=== PATIENT | male | born 1990 | race African-American/Black ===

== ENCOUNTER 2018-10-03 02:37 | Emergency (ER) | payer SELFPAY ==
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
[2018-10-03] MEDS ORDERED: LIDOCAINE 1%/EPINEPHRINE INJ 20 ML VIAL INJ ONE (06:12)
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
[2018-10-03 07:24] VITALS: BP 169/91
== END 2018-10-03 07:24 | disposition home or self-care (01) ==
LOC: ER 02:37
PROC: 0HQ1XZZ Repair Face Skin, External Approach (ICD-10-PCS; principal; 2018-10-03)
DX: S01.81XA Laceration without foreign body of other part of head, initial encounter (principal); Y08.89XA Assault by other specified means, initial encounter; F17.200 Nicotine dependence, unspecified, uncomplicated; J45.909 Unspecified asthma, uncomplicated
CPT/HCPCS: 99283; 70450; 12013; J3490

== ENCOUNTER 2018-12-01 04:29 | Inpatient (IN) | payer OTHER ==
[2018-12-01] MEDS ORDERED: NORMAL SALINE 1000 ML 1,000 ML IV ONE (04:44)
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
[2018-12-01 05:13] LABS: VENOUS BLOOD BASE EXCESS 1.9 mmol/L; VENOUS BLOOD HCO3 27.1 mmol/L (20-32); VENOUS BLOOD PCO2 44.2 mmHg (35-63); VENOUS BLOOD PH 7.41 (7.30-7.42)
[2018-12-01 05:17] LABS: HEMATOCRIT 40.1 % (37.9-51.0); HEMOGLOBIN 13.5 g/dL (13.5-17.0); MEAN CORPUSCULAR HEMOGLOBIN 29.7 pg (27.0-33.4); MEAN CORPUSCULAR HGB CONC 33.7 g/dL (32.0-36.0); MEAN CORPUSCULAR VOLUME 88 fl (80-97); PLATELET COUNT 183 10^3/uL (150-450); RED BLOOD COUNT 4.54 10^6/uL (4.35-5.55)
[2018-12-01 05:32] LABS: ALANINE AMINOTRANSFERASE 16 U/L (21-72); ALBUMIN 4.3 g/dL (3.5-5.0); ALKALINE PHOSPHATASE 57 U/L (38-126); ANION GAP 11 (5-19); ASPARTATE AMINO TRANSFERASE 15 U/L (17-59); BILIRUBIN,DIRECT 0.2 mg/dL (0.0-0.4); BILIRUBIN,TOTAL 0.6 mg/dL (0.2-1.3); BLOOD UREA NITROGEN 9 mg/dL (7-20); CALCIUM 9.9 mg/dL (8.4-10.2); CARBON DIOXIDE 26 mmol/L (22-30); CHLORIDE 103 mmol/L (98-107); GLUCOSE 112 mg/dL (75-110); SODIUM 140.1 mmol/L (137-145); TOTAL PROTEIN 6.7 g/dL (6.3-8.2)
[2018-12-01 05:38] LABS: ABSOLUTE LYMPHOCYTES# (MANUAL) 0.2 10^3/uL (0.5-4.7); ABSOLUTE MONOCYTES # (MANUAL) 0.2 10^3/uL (0.1-1.4); ABSOLUTE NEUTROPHILS# (MANUAL) 18.6 10^3/uL (1.7-8.2); BAND NEUTROPHILS % (MANUAL) 4 % (3-5); BASOPHILS % (MANUAL) 0 % (0-2); EOSINOPHILS % (MANUAL) 0 % (0-6); LYMPHOCYTES % (MANUAL) 1 % (13-45); MONOCYTES % (MANUAL) 1 % (3-13); PLATELET COMMENT ADEQUATE; SEGMENTED NEUTROPHILS % (MAN) 94 % (42-78); TOTAL CELLS COUNTED 100
[2018-12-01 05:39] LABS: RBC MORPHOLOGY COMMENT NORMO-CYTIC/CHROMIC
--- NOTE | 2018-12-01 05:49 | RADIOLOGY REPORT (SQ) ---
EXAM DESCRIPTION: XR CHEST 2 VIEWS COMPLETED DATE/TME: 12/01/2018 04:44 CLINICAL HISTORY: 28 years Male, fever, chest pain COMPARISON: None. NUMBER OF VIEWS/TECHNIQUE: 2, Frontal, Lateral FINDINGS: Adequate lung volume, clear parenchyma, normal cardiac silhouette, and intact bony thorax. IMPRESSION: No acute cardiopulmonary findings.
[2018-12-01] MEDS ORDERED: KETOROLAC TROMETHAMINE INJ/PF 30 MG/1 ML SDV IV ONE ×2 (05:59→06:01)
[2018-12-01 06:09] LABS: APPEARANCE,URINE CLEAR; BILIRUBIN,URINE NEGATIVE (NEGATIVE); COLOR,URINE YELLOW; GLUCOSE, URINE NEGATIVE (NEGATIVE); KETONES,URINE NEGATIVE (NEGATIVE); LEUKOCYTE ESTERASE,URINE NEGATIVE (NEGATIVE); NITRITE,URINE NEGATIVE (NEGATIVE); PROTEIN,URINE NEGATIVE (NEGATIVE); URINE SPECIFIC GRAVITY 1.015; UROBILINOGEN,URINE NEGATIVE mg/dL (<2.0)
[2018-12-01 06:57] LABS: URINE AMPHETAMINES SCREEN NEGATIVE; URINE BARBITURATES SCREEN NEGATIVE; URINE BENZODIAZEPINES SCREEN NEGATIVE; URINE COCAINE SCREEN NEGATIVE; URINE MARIJUANA (THC) SCREEN NEGATIVE; URINE METHADONE SCREEN NEGATIVE; URINE PHENCYCLIDINE SCREEN NEGATIVE
--- NOTE | 2018-12-01 07:03 | RADIOLOGY REPORT (SQ) ---
EXAM DESCRIPTION: CT CHEST ANGIOGRAPHY WITHOUT THEN WITH IV CONTRAST COMPLETED DATE/TME: 12/01/2018 06:18 CLINICAL HISTORY: 28 years Male, CP, Tachy, Cough, Hx DVT Comparison: None. Technique: IV contrast. Coronal and sagittal reformat. 3d reconstruction. This exam was performed according to our departmental dose-optimization program, which includes automated exposure control, adjustment of the mA and/or kV according to patient size and/or use of iterative reconstruction technique.[facility]: Dose Right [facility]: CareDose [facility]: Dose Right [facility]: Teradose 4D [facility]: [employer] LIMITATIONS: None Findings: No pulmonary embolus. No right ventricular strain. Clear lungs. Inferior neck, axillae, mediastinum, lungs, airway, lymphatics, heart, vasculature, upper abdomen, and musculoskeleton appear otherwise unremarkable. Impression: No pulmonary embolus. No acute cardiopulmonary findings.
--- NOTE | 2018-12-01 08:40 | EKG REPORT ---
SEVERITY:- NORMAL ECG - SINUS RHYTHM : Confirmed by: Jose R Ch MD 01-Dec-2018 08:39:52
[2018-12-01] MEDS ORDERED: ACETAMINOPHEN 325 MG TABLET PO ONE (11:53)
--- NOTE | 2018-12-01 14:32 | XCELERA REPORT ---
[address] [address] Lower Extremity Venous Evaluation Procedure: Color flow and duplex imaging of the veins of the left lower extremity as well as the right Common Femoral vein. Right Sided Venous Evaluation The right common femoral vein is fully compressible. Spontaneous and phasic flow is present in the right common femoral vein. Left Sided Venous Evaluation Oval mass, complex in subcutaneous tissue of groin, 3.8 x 1.5 x 3.7 cms. Normal vessel filling wall to wall, compression and augmentation as well as Colour flow down to the infrageniculate veins. Interpretation Summary No duplex evidence of DVT or obstruction in the left lower extremity nor in the right Common Femoral vein. Left groin mass, likely an enlarged lymph node. Name: MONIQUE GAYTAN JR Age: 28 yrs Gender: Male : 1990 Patient Status: Emergency Patient Location: ER Study Date: 12/01/2018 08:11 AM Reason For Study: left leg pain Ordering Physician: HEDY FORMAN Performed By: Deep Maher : HEDY FORMAN > Martin Roldan
--- NOTE | 2018-12-01 16:26 | RADIOLOGY REPORT (SQ) ---
EXAM DESCRIPTION: MRI LUMBAR SPINE WITHOUT COMPLETED DATE/TIME: 12/01/2018 4:13 pm REASON FOR STUDY: r/o spinal abscess, lumbar tenderness, FUO COMPARISON: None. TECHNIQUE: Sagittal and Axial imaging includes T1, T2, STIR and gradient echo sequences. Coronal T2/ HASTE imaging. LIMITATIONS: None. FINDINGS: VISUALIZED UPPER ABDOMEN: Limited evaluation. No acute or suspicious findings suggested. SEGMENTATION: No transitional anatomy. The lowest well-developed disc space is labeled L5-S1. ALIGNMENT: 9 mm anterolisthesis of L5 on S1. VERTEBRAE: Intact. BONE MARROW: Normal. No marrow replacement or reactive changes. DISC SIGNAL: Disc desiccation at the L5-S1 level with uncovering of the posterior disc margin, 8 mm w ith mild global height loss. Otherwise the signal is within normal limits in the remaining lumbar le vels. POSTERIOR ELEMENTS: Bilateral L5 pars defects. HARDWARE: None in the spine. CORD AND CONUS: Normal in size and signal intensity. Conus at the appropriate level. SOFT TISSUES: No aortic aneurysm seen. No bulky retroperitoneal adenopathy or mass. No paraspinal mas s or fluid. L1-L2: No significant spinal stenosis or exit foraminal stenosis. L2-L3: No significant spinal stenosis or exit foraminal stenosis. L3-L4: No significant spinal stenosis or exit foraminal stenosis. L4-L5: No significant spinal stenosis or exit foraminal stenosis. L5-S1: No significant spinal stenosis. Mild -moderate bilateral L5-S1 exit foraminal stenosis. LOWER THORACIC: Incompletely imaged. No stenosis seen. SACRUM: Visualized upper sacrum intact. OTHER: No other significant findings. IMPRESSION: Mild -moderate bilateral L5-S1 exit foraminal stenosis due to 9 mm anterolisthesis secon maximiliano to bilateral L5 pars interarticularis defects. TECHNICAL DOCUMENTATION: JOB ID: [id number] 2010 [employer]- All Rights Reserved Reading location - IP/workstation name: [email or web address]
--- NOTE | 2018-12-01 16:35 | PDOC H&P ---
History of Present Illness Patient complains of: left thigh pain, fever History of Present Illness: MONIQUE GAYTAN JR is a 28 year old male with a past medical history of DVT on the left lower extremity in 2009 and was previously on Coumadin, HTN-not on meds and asthma. He also reports some sort of infection on the same area and he says he had an infected clot on that leg was brought into shelter because of left thigh vincenzo n. Patient says that he does have chronic pain on the medial aspect of the left groin after he had a surgical removal of "that previously infected clot". In the ER, he was noted to be febrile with a T-max of 103 F. Initial work-up is unrevealing for definite source of infection. Left lower extremity ultrasound is negative for DVT or abscess. Left groin mass is deemed to be a likely enlarged lymph node. Chest CTA was also done as patient initially complaining of mild chest pain this came back negative for PE or pneumonia. UA was also negative. On auscultation, patient does have a systolic murmur but he says that he was told that he had a murmur since he was a baby. He denies IV drug use. He complains of mild lower back pain but this has been chronic. There is no significant focal tenderness along the spine. Past Medical History Cardiac Medical History: Reports: DVT, Hypertension Pulmonary Medical History: Reports: Asthma Past Surgical History Past Surgical History: Reports: Orthopedic Surgery - leg for clot Social History Lives with: Other - Incarcerated Smoking Status: Current Every Day Smoker Family History Family History: Reviewed & Not Pertinent Parental Family History Reviewed: Yes - No premature CAD Children Family History Reviewed: No Sibling(s) Family History Reviewed.: No Medication/Allergy Home Medications: No Home Medications 12/01/18 Allergies/Adverse Reactions: amoxicillin [From Augmentin] Allergy (Verified 12/01/18 06:17) clavulanic acid [From Augmentin] Allergy (Verified 12/01/18 06:17) Penicillins Allergy (Verified 12/01/18 06:17) tramadol Allergy (Verified 12/01/18 06:17) Review of Systems All systems: reviewed and no additional remarkable complaints except as stated - As mentioned in HPI Physical Exam Vital Signs: Temp Pulse Resp BP Pulse Ox 100.7 F H 116 H 24 H 168/107 H 100 12/01/18 11:31 12/01/18 04:30 12/01/18 11:31 12/01/18 11:31 12/01/18 11:31 Intake & Output 11/30/18 12/01/18 12/02/18 06:59 06:59 06:59 Intake Total 1000 Balance 1000 Weight 195 lb 1.745 oz Results Laboratory Results: 12/01/18 04:46 12/01/18 04:46 12/01/18 12/01/18 12/01/18 04:46 04:46 04:46 WBC 19.0 H RBC 4.54 Hgb 13.5 Hct 40.1 MCV 88 MCH 29.7 MCHC 33.7 RDW 13.0 Plt Count 183 Seg Neutrophils % Not Reportable Lymphocytes % Not Reportable Monocytes % Not Reportable Eosinophils % Not Reportable Basophils % Not Reportable Absolute Neutrophils Not Reportable Absolute Lymphocytes Not Reportable Absolute Monocytes Not Reportable Absolute Eosinophils Not Reportable Absolute Basophils Not Reportable VBG pH VBG pCO2 VBG HCO3 VBG Base Excess Sodium 140.1 Potassium 4.0 Chloride 103 Carbon Dioxide 26 Anion Gap 11 BUN 9 Creatinine 1.08 Est GFR ( Amer) > 60 Est GFR (Non-Af Amer) > 60 Glucose 112 H Lactic Acid 1.7 Calcium 9.9 Total Bilirubin 0.6 AST 15 L ALT 16 L Alkaline Phosphatase 57 C-Reactive Protein Total Protein 6.7 Albumin 4.3 Urine Color Urine Appearance Urine pH Ur Specific [place] Urine Protein Urine Glucose (UA) Urine Ketones Urine Blood Urine Nitrite Ur Leukocyte Esterase Urine WBC (Auto) Urine RBC (Auto) 12/01/18 12/01/18 12/01/18 04:46 04:46 05:50 WBC RBC Hgb Hct MCV MCH MCHC RDW Plt Count Seg Neutrophils % Lymphocytes % Monocytes % Eosinophils % Basophils % Absolute Neutrophils Absolute Lymphocytes Absolute Monocytes Absolute Eosinophils Absolute Basophils VBG pH 7.41 VBG pCO2 44.2 VBG HCO3 27.1 VBG Base Excess 1.9 Sodium Potassium Chloride Carbon Dioxide Anion Gap BUN Creatinine Est GFR ( Amer) Est GFR (Non-Af Amer) Glucose Lactic Acid Calcium Total Bilirubin AST ALT Alkaline Phosphatase C-Reactive Protein 5.9 Total Protein Albumin Urine Color YELLOW Urine Appearance CLEAR Urine pH 7.0 Ur Specific [place] 1.015 Urine Protein NEGATIVE Urine Glucose (UA) NEGATIVE Urine Ketones NEGATIVE Urine Blood NEGATIVE Urine Nitrite NEGATIVE Ur Leukocyte Esterase NEGATIVE Urine WBC (Auto) 1 Urine RBC (Auto) 0 12/01/18 04:46 Troponin I < 0.012 Impressions: Chest X-Ray 12/01/18 04:44 IMPRESSION: No acute cardiopulmonary findings. Assessment and Plan - Diagnosis (1) Fever of undetermined origin Is this a current diagnosis for this admission?: Yes Plan: Patient has been persistently febrile in the ER with a T-max of 103. As m entioned, patient does have a systolic murmur but he says that he was told that he had a murmur since he was a baby. Blood cultures pending. Will start patient on IV vancomycin. Will order an echocardiogram. He complains of mild lower back pain but this has been chronic. There is no significant focal tenderness along the spine. We will rule out a spinal abscess with an MRI. (2) Hypertension Is this a current diagnosis for this admission?: Yes Plan: Currently not on any home medications. Continue to check blood pressure trends. Add hydralazine as needed. Will start oral maintenance medication depending on blood pressure trends. - Time Time Spent with patient: 25-34 minutes
[2018-12-01] MEDS ORDERED: VANCOMYCIN HCL 0 MG in DEXTROSE 5%-WATER 250 ML IV NR (16:45)
[2018-12-01] MEDS ORDERED: ACETAMINOPHEN 325 MG TABLET PO PRN (17:07)
[2018-12-01] MEDS: ACETAMINOPHEN 325 MG TABLET PO PRN ×2 (17:14→23:19)
[2018-12-01] MEDS ORDERED: VANCOMYCIN HCL INJ 1000 MG VIAL IV PRN (17:47)
[2018-12-01] MEDS ORDERED: VANCOMYCIN HCL 1,750 MG in DEXTROSE 5%-WATER 500 ML IV ONE (18:00)
[2018-12-01] MEDS ORDERED: HYDRALAZINE HCL INJ/PF 20 MG/1 ML SDV IV PRN (18:49)
--- NOTE | 2018-12-01 20:20 | XCELERA REPORT ---
[address] [address] Transthoracic Echocardiogram Report Name: MONIQUE GAYTAN JR Age: 28 yrs Gender: Male : 1990 Patient Status: Inpatient Patient Location: [place] [address]^A Study Date: 12/01/2018 04:48 PM Height: 65 in Weight: 195 lb BSA: 2.0 m2 Procedure: A two-dimensional transthoracic echocardiogram with color flow and Doppler was performed. Images were not obtained from all of the standard acoustic windows due to the limited scope of the study. Reason For Study: FUO,systolic murmur (reports known murmur) History: SYSTOLIC MURMUR. Ordering Physician: JANIE CANTOR Performed By: Deep Maher Interpretation Summary The left ventricle is normal in size. There is normal left ventricular wall thickness. No True apical 2 chamber views obtained.Hence cannot comment on the apical anterior , the basal anterior, the basal inferior and apical inferior akhtar.The mid anterior , the mid inferior and the rest of the LV akhtar contract normally. . LVEF is normal and is greater than 60% in the limited views. Doppler measurements suggest normal left ventricular diastolic function There is no thrombus. No defenite ASD , VSD . or PFO seen. The right ventricle is normal in size and function. The right ventricle is not well visualized secondary to technical limitations The right atrium is normal. The left atrial size is normal. There is no evidence of mitral valve prolapse. There is no vegetation seen on the mitral valve. There is no mitral valve stenosis. There is a trace amount of mitral regurgitation There is no aortic valvular vegetation. There is mild aortic stenosis There is a peak gradient of 16 mm of Hg. No hemodynamically significant valvular aortic stenosis. There is no LVOT obstruction. No aortic regurgitation is present. There is no tricuspid stenosis. There is a trace to mild amount of tricuspid regurgitation Mild Pulmonary Hypertension.RVSP is 31 to 36 mm of Hg , with RA mean of 5 to 10. There is no pulmonic valvular stenosis. There is no pulmonic valvular regurgitation. The aortic root is not well visualized but is probably normal size. The inferior vena cava appeared normal and decreased > 50% with respiration (RAP 5-10 mmHg) There is no pericardial effusion. MMode/2D Measurements & Calculations RVDd: 3.0 cm LVIDd: 4.0 cm FS: 29.0 % Ao root diam: 2.9 cm IVSd: 0.88 cm LVIDs: 2.8 cm EDV(Teich): 69.5 ml Ao root area: 6.8 cm2 LVPWd: 1.2 cm ESV(Teich): 30.4 ml LA dimension: 2.5 cm EF(Teich): 56.3 % LVOT diam: 1.9 cm LVOT area: 3.0 cm2 Doppler Measurements & Calculations MV E max cuca: MV P1/2t max cuca: Ao V2 max: LV V1 max P.4 cm/sec 112.9 cm/sec 197.2 cm/sec 11.7 mmHg MV A max cuca: MV P1/2t: 66.0 msec Ao max PG: LV V1 max: 78.0 cm/sec MVA(P1/2t): 3.3 cm2 15.6 mmHg 170.7 cm/sec MV E/A: 1.1 MV dec slope: DAY(V,D): 2.6 cm2 501.1 cm/sec2 MV dec time: 0.23 sec PA V2 max: TR max cuca: MV P1/2t-pr_phl: 190.0 cm/sec 257.1 cm/sec 66.0 msec PA max PG: TR max P.4 mmHg 14.4 mmHg Left Ventricle The left ventricle is normal in size. There is normal left ventricular wall thickness. No True apical 2 chamber views obtained.Hence cannot comment on the apical anterior , the basal anterior, the basal inferior and apical inferior akhtar.The mid anterior , the mid inferior and the rest of the LV akhtar contract normally. . LVEF is normal and is greater than 60% in the limited views. Doppler measurements suggest normal left ventricular diastolic function. There is no thrombus. No defenite ASD , VSD . or PFO seen. Right Ventricle The right ventricle is normal in size and function. The right ventricle is not well visualized secondary to technical limitations. Atria The right atrium is normal. The left atrial size is normal. Mitral Valve There is no evidence of mitral valve prolapse. There is no vegetation seen on the mitral valve. There is no mitral valve stenosis. There is a trace amount of mitral regurgitation. Aortic Valve There is no aortic valvular vegetation. There is mild aortic stenosis. There is a peak gradient of 16 mm of Hg. No hemodynamically significant valvular aortic stenosis. There is no LVOT obstruction. No aortic regurgitation is present. Tricuspid Valve There is no tricuspid stenosis. There is a trace to mild amount of tricuspid regurgitation. Mild Pulmonary Hypertension.RVSP is 31 to 36 mm of Hg , with RA mean of 5 to 10. Pulmonic Valve There is no pulmonic valvular stenosis. There is no pulmonic valvular regurgitation. Great Vessels The aortic root is not well visualized but is probably normal size. The inferior vena cava appeared normal and decreased > 50% with respiration (RAP 5-10 mmHg). Effusions There is no pericardial effusion. : JANIE CANTOR > Yoko Hall
[2018-12-01] MEDS ORDERED: VANCOMYCIN HCL INJ 1000 MG VIAL ONE (21:06)
[2018-12-01] MEDS: HEPARIN SOD (PORCINE) 5,000 UNIT/ML 1 ML SYRINGE SUBCUT SCH (22:20)
[2018-12-02] MEDS ORDERED: VANCOMYCIN HCL INJ 1000 MG VIAL IV PRN (03:00)
[2018-12-02 06:49] LABS: ABSOLUTE BASOPHILS # (AUTO) 0.1 10^3/uL (0.0-0.2); ABSOLUTE NEUT (AUTO) 13.8 10^3/uL (1.7-8.2); BASOPHILS % (AUTO) 0.4 % (0-2); EOSINOPHILS % (AUTO) 0.1 % (0-6); HEMATOCRIT 37.7 % (37.9-51.0); HEMOGLOBIN 12.9 g/dL (13.5-17.0); LYMPHOCYTES % (AUTO) 6.5 % (13-45); MEAN CORPUSCULAR HEMOGLOBIN 30.1 pg (27.0-33.4); MEAN CORPUSCULAR HGB CONC 34.2 g/dL (32.0-36.0); MEAN CORPUSCULAR VOLUME 88 fl (80-97); MONOCYTES % (AUTO) 6.1 % (3-13); PLATELET COUNT 146 10^3/uL (150-450); RED BLOOD COUNT 4.28 10^6/uL (4.35-5.55); RED CELL DISTRIBUTION WIDTH 13.3 % (11.5-14.0); SEGMENTED NEUTROPHILS % (AUTO) 86.9 % (42-78); TOTAL CELLS COUNTED % (AUTO) 100 %; WHITE BLOOD COUNT 15.9 10^3/uL (4.0-10.5)
[2018-12-02 07:11] LABS: ANION GAP 7 (5-19); BLOOD UREA NITROGEN 10 mg/dL (7-20); CALCIUM 9.3 mg/dL (8.4-10.2); CARBON DIOXIDE 26 mmol/L (22-30); CHLORIDE 104 mmol/L (98-107); GLUCOSE 91 mg/dL (75-110); POTASSIUM 4.1 mmol/L (3.6-5.0); SODIUM 137.4 mmol/L (137-145)
[2018-12-02] MEDS ORDERED: VANCOMYCIN HCL 1,500 MG in DEXTROSE 5%-WATER 250 ML IV ONE (08:00)
[2018-12-02] MEDS: LEVOFLOXACIN 750 MG/D5W RTU 750 MG/150 ML RTUPB IV SCH (10:30)
[2018-12-02] MEDS: HEPARIN SOD (PORCINE) 5,000 UNIT/ML 1 ML SYRINGE SUBCUT SCH ×2 (10:37→21:12)
--- NOTE | 2018-12-02 11:02 | PDOC PROGRESS REPORT ---
Subjective Progress Note for:: 12/02/18 Subjective:: a 28 year old male with a past medical history of DVT on the left lower extremity in 2009 and was previously on Coumadin, HTN-not on meds and asthma. He also reports some sort of infection on the same area and he says he had an infected clot on that leg was brought into long term because of left thigh pain. Patient says that he does have chronic pain on the medial aspect of the left groin after he had a surgical removal of "that previously infected clot". In the ER, he was noted to be febrile with a T-max of 103 F. Initial work-up is unrevealing for definite source of infection. Left lower extremity ultrasound is negative for DVT or abscess. Left groin mass is deemed to be a likely enlarged lymph node. Chest CTA was also done as patient initially complaining of mild chest pain this came back negative for PE or pneumonia. UA was also negative. On auscultation, patient does have a systolic murmur but he says that he was told that he had a murmur since he was a baby. He denies IV drug use. He complains of mild lower back pain but this has been chronic. There is no significant focal tenderness along the spine. 12/02/[id number]-enes-old male with history of DVT of the left lower extremity that was diagnosed in 2009 on Coumadin briefly, hypertension, asthma admitted for fever in the emergency room T-max is 103 blood cultures were sent and on IV vancomycin and was started on IV levo floxacillin this morning because she is allergic to penicillin. On examination no signs of any meningeal symptoms. Alert and awake communicating well. T-max this morning is 101.9. Latest temperature is 98.5. Echocardiogram did not suggestive of any endocarditis. Chest CTA was done which was negative for PE and pneumonia. Left groin mass may be most likely enlarged lymph node. Complaining of back pain requesting Percocets. Repeat blood cultures are requested this morning. Reason For Visit: FEVER OF UNKNOWN ORIGIN, R/O ENDOCARDITIS Physical Exam Vital Signs: Temp Pulse Resp BP Pulse Ox 98.5 F 92 18 142/79 H 92 12/02/18 08:00 12/02/18 08:00 12/02/18 08:00 12/02/18 08:00 12/02/18 08:00 Intake & Output 12/01/18 12/02/18 12/03/18 06:59 06:59 06:59 Intake Total 1000 750 Balance 1000 750 Weight 88.5 kg 81.4 kg General appearance: PRESENT: no acute distress, well-developed Head exam: PRESENT: atraumatic Eye exam: PRESENT: PERRLA Mouth exam: PRESENT: moist, tongue midline Neck exam: ABSENT: carotid bruit, JVD, lymphadenopathy, thyromegaly Respiratory exam: PRESENT: clear to auscultation elmo. ABSENT: rales, rhonchi, wheezes Cardiovascular exam: PRESENT: RRR. ABSENT: diastolic murmur, rubs, systolic murmur GI/Abdominal exam: PRESENT: normal bowel sounds, soft. ABSENT: distended, guarding, mass, organolmegaly, rebound, tenderness Rectal exam: PRESENT: deferred Extremities exam: PRESENT: other - The left groin area small lump is present it may be enlarged lymph node. Nontender to touch ,no increased warmth present. Neurological exam: PRESENT: alert, awake, oriented to person, oriented to place, oriented to time, oriented to situation, CN II-XII grossly intact. ABSENT: motor sensory deficit Results Laboratory Results: 12/02/18 06:40 12/02/18 06:40 12/02/18 12/02/18 06:40 06:40 WBC 15.9 H RBC 4.28 L Hgb 12.9 L Hct 37.7 L MCV 88 MCH 30.1 MCHC 34.2 RDW 13.3 Plt Count 146 L Seg Neutrophils % 86.9 H Lymphocytes % 6.5 L Monocytes % 6.1 Eosinophils % 0.1 Basophils % 0.4 Absolute Neutrophils 13.8 H Absolute Lymphocytes 1.0 Absolute Monocytes 1.0 Absolute Eosinophils 0.0 Absolute Basophils 0.1 Sodium 137.4 Potassium 4.1 Chloride 104 Carbon Dioxide 26 Anion Gap 7 BUN 10 Creatinine 1.13 Est GFR ( Amer) > 60 Est GFR (Non-Af Amer) > 60 Glucose 91 Calcium 9.3 12/01/18 04:46 Troponin I < 0.012 Impressions: Lumbar Spine MRI 12/01/18 00:00 IMPRESSION: Mild -moderate bilateral L5-S1 exit foraminal stenosis due to 9 mm anterolisthesis secondary to bilateral L5 pars interarticularis defects. Chest X-Ray 12/01/18 04:44 IMPRESSION: No acute cardiopulmonary findings. Assessment and Plan - Diagnosis (1) Fever of undetermined origin Is this a current diagnosis for this admission?: Yes Plan: Patient has been persistently febrile in the ER with a T-max of 103. As mentioned, patient does have a systolic murmur but he says that he was told that he had a murmur since he was a baby. Blood cultures pending. Will start patient on IV vancomycin. Will order an echocardiogram. He complains of mild lower back pain but this has been chronic. There is no significant focal tenderness along the spine. We will rule out a spinal abscess with an MRI. 12/02/[id number]-ijwj-old male admitted with fever of unknown origin. Presently on vancomycin, IV levo floxacillin added this morning. Echocardiogram is negative for endocarditis. Echocardiogram was done because history of systolic murmur. This morning temperature is 101.9 and it is improved to 98.5. The cultures are pending so far. Repeat cultures are requested this morning. No signs of neck rigidity and no meningeal signs like Brudzinski sign. (2) Fever Qualifiers: Fever type: unspecified Qualified Code(s): R50.9 - Fever, unspecified Is this a current diagnosis for this admission?: Yes Plan: 12/02/2018-patient came in with fever of 103 and this morning fever is 101.9. Blood cultures are pending no obvious source of infection was found so far. Echocardiogram is negative for endocarditis. Repeat blood cultures are requested this morning. Plan is to continue IV vancomycin and levofloxacin. (3) Hypertension Is this a current diagnosis for this admission?: Yes Plan: Currently not on any home medications. Continue to check blood pressure trends. Add hydralazine as needed. Will start oral maintenance medication depending on blood pressure trends. 12/02/2018-patient blood pressure this morning is 148/80 presently in on hydralazine IV every 6 as needed. Plan is to start on amlodipine 5 mg p.o. daily from today. (4) Leukocytosis Qualifiers: Leukocytosis type: unspecified Qualified Code(s): D72.829 - Elevated white blood cell count, unspecified Is this a current diagnosis for this admission?: Yes Plan: 12/02/2018-WBC count today is 15,900, on admission it is 19,000. Leukocytosis most likely secondary to fever of unknown origin. - Time Time Spent with patient: 15-24 minutes Smoking Cessation Education: over 10 minutes Medications reviewed and adjusted accordingly: Yes Anticipated discharge: Home
[2018-12-02] MEDS: OXYCODONE-ACETAMINOPHEN 5-325 MG TABLET PO PRN (19:49)
[2018-12-02] MEDS: VANCOMYCIN HCL 1,500 MG in DEXTROSE 5%-WATER 250 ML IV SCH (21:08)
[2018-12-03] MEDS: OXYCODONE-ACETAMINOPHEN 5-325 MG TABLET PO PRN ×3 (05:04→20:20)
[2018-12-03 05:51] LABS: ABSOLUTE BASOPHILS # (AUTO) 0.1 10^3/uL (0.0-0.2); ABSOLUTE EOSINOPHILS # (AUTO) 0.1 10^3/uL (0.0-0.6); ABSOLUTE LYMPHOCYTES (AUTO) 1.3 10^3/uL (0.5-4.7); ABSOLUTE MONOCYTES (AUTO) 0.9 10^3/uL (0.1-1.4); ABSOLUTE NEUT (AUTO) 7.3 10^3/uL (1.7-8.2); BASOPHILS % (AUTO) 0.7 % (0-2); EOSINOPHILS % (AUTO) 0.7 % (0-6); HEMATOCRIT 36.7 % (37.9-51.0); HEMOGLOBIN 12.4 g/dL (13.5-17.0); LYMPHOCYTES % (AUTO) 13.6 % (13-45); MEAN CORPUSCULAR HEMOGLOBIN 30.2 pg (27.0-33.4); MEAN CORPUSCULAR HGB CONC 33.8 g/dL (32.0-36.0); MEAN CORPUSCULAR VOLUME 89 fl (80-97); MONOCYTES % (AUTO) 9.3 % (3-13); PLATELET COUNT 143 10^3/uL (150-450); RED CELL DISTRIBUTION WIDTH 13.1 % (11.5-14.0); SEGMENTED NEUTROPHILS % (AUTO) 75.7 % (42-78); TOTAL CELLS COUNTED % (AUTO) 100 %; WHITE BLOOD COUNT 9.7 10^3/uL (4.0-10.5)
[2018-12-03 06:26] LABS: ALANINE AMINOTRANSFERASE 22 U/L (21-72); ALBUMIN 3.5 g/dL (3.5-5.0); ALKALINE PHOSPHATASE 48 U/L (38-126); ANION GAP 9 (5-19); ASPARTATE AMINO TRANSFERASE 12 U/L (17-59); BILIRUBIN,DIRECT 0.2 mg/dL (0.0-0.4); BILIRUBIN,TOTAL 0.2 mg/dL (0.2-1.3); BLOOD UREA NITROGEN 9 mg/dL (7-20); CALCIUM 9.1 mg/dL (8.4-10.2); CARBON DIOXIDE 28 mmol/L (22-30); CHLORIDE 101 mmol/L (98-107); GLUCOSE 92 mg/dL (75-110); POTASSIUM 4.2 mmol/L (3.6-5.0); SODIUM 138.2 mmol/L (137-145); TOTAL PROTEIN 5.8 g/dL (6.3-8.2)
[2018-12-03] MEDS: VANCOMYCIN HCL 1,500 MG in DEXTROSE 5%-WATER 250 ML IV SCH ×2 (10:02→21:51)
[2018-12-03] MEDS: HEPARIN SOD (PORCINE) 5,000 UNIT/ML 1 ML SYRINGE SUBCUT SCH ×2 (10:03→21:51)
[2018-12-03] MEDS: LEVOFLOXACIN 750 MG/D5W RTU 750 MG/150 ML RTUPB IV SCH (11:52)
--- NOTE | 2018-12-03 12:49 | PDOC PROGRESS REPORT ---
Subjective Progress Note for:: 12/03/18 Subjective:: MONIQUE GAYTAN JR is a 28 year old male with a past medical history of DVT on the left lower extremity in 2009 and was previously on Coumadin, HTN-not on meds and asthma. He also reports some sort of infection on the same area and he says he had an infected clot on that leg was brought into longterm because of left thigh pain. Patient says that he does have chronic pain on the medial aspect of the left groin after he had a surgical removal of "that previously infected clot". In the ER, he was noted to be febrile with a T-max of 103 F. Initial work-up is unrevealing for definite source of infection. Left lower extremity ultrasound is negative for DVT or abscess. Left groin mass is deemed to be a likely enlarged lymph node. Chest CTA was also done as patient initially complaining of mild chest pain this came back negative for PE or pneumonia. UA was also negative. On auscultation, patient does have a systolic murmur but he says that he was told that he had a murmur since he was a baby. He denies IV drug use. He complains of mild lower back pain but this has been chronic. There is no significant focal tenderness along the spine. 12/03/2018. No events overnight. Patient complaining of left lower extremity pain, denies any fever, chills, nausea, vomiting, diarrhea, constipation or any urinary symptoms. Reason For Visit: FUO, MRSA UTI Physical Exam Vital Signs: Temp Pulse Resp BP Pulse Ox 98.4 F 67 17 119/69 100 12/03/18 12:00 12/03/18 12:00 12/03/18 12:00 12/03/18 12:00 12/03/18 12:00 Intake & Output 12/02/18 12/03/18 12/04/18 06:59 06:59 06:59 Intake Total 3634 250 Output Total 3640 Balance -6 250 Weight 81.4 kg 83.6 kg General appearance: PRESENT: no acute distress, well-developed, well-nourished Head exam: PRESENT: atraumatic, normocephalic Neck exam: ABSENT: carotid bruit, JVD, lymphadenopathy, thyromegaly Respiratory exam: PRESENT: clear to auscultation [place]. ABSENT: rales, rhonchi, wheezes Cardiovascular exam: PRESENT: RRR. ABSENT: diastolic murmur, rubs, systolic murmur GI/Abdominal exam: PRESENT: normal bowel sounds, soft. ABSENT: distended, guarding, mass, organolmegaly, rebound, tenderness Extremities exam: PRESENT: full ROM, tenderness - LLE, NV intact.. ABSENT: calf tenderness, clubbing, pedal edema Neurological exam: PRESENT: alert, awake, oriented to person, oriented to place, oriented to time, oriented to situation, CN II-XII grossly intact. ABSENT: motor sensory deficit Results Laboratory Results: 12/03/18 05:04 12/03/18 05:04 12/03/18 12/03/18 05:04 05:04 WBC 9.7 RBC 4.10 L Hgb 12.4 L Hct 36.7 L MCV 89 MCH 30.2 MCHC 33.8 RDW 13.1 Plt Count 143 L Seg Neutrophils % 75.7 Lymphocytes % 13.6 Monocytes % 9.3 Eosinophils % 0.7 Basophils % 0.7 Absolute Neutrophils 7.3 Absolute Lymphocytes 1.3 Absolute Monocytes 0.9 Absolute Eosinophils 0.1 Absolute Basophils 0.1 Sodium 138.2 Potassium 4.2 Chloride 101 Carbon Dioxide 28 Anion Gap 9 BUN 9 Creatinine 1.02 Est GFR ( Amer) > 60 Est GFR (Non-Af Amer) > 60 Glucose 92 Calcium 9.1 Magnesium 1.9 Total Bilirubin 0.2 AST 12 L ALT 22 Alkaline Phosphatase 48 Total Protein 5.8 L Albumin 3.5 12/01/18 05:50 Clean Catch Midstream Urine Culture - Final Mrsa (Meth Resis Staph Aureus) 12/01/18 04:46 Troponin I < 0.012 Impressions: Lumbar Spine MRI 12/01/18 00:00 IMPRESSION: Mild -moderate bilateral L5-S1 exit foraminal stenosis due to 9 mm anterolisthesis secondary to bilateral L5 pars interarticularis defects. Chest X-Ray 12/01/18 04:44 IMPRESSION: No acute cardiopulmonary findings. Assessment and Plan - Diagnosis (1) Fever Qualifiers: Fever type: unspecified Qualified Code(s): R50.9 - Fever, unspecified Is this a current diagnosis for this admission?: Yes Plan: FUE. Febrile, WBC within normal limits. Cultures no growth so far. 2D echo negative for any vegetation, thrombus, CTA negative for any pneumonia PE, left lower extremity Doppler negative for any DVT 12/03/2018: SBP 819033, T-max 98.8, pulse 60s, RR 1413, SPO2 100% RA. WBC 9.7, hemoglobin 12.4, platelets 143. Day 3 of IV empiric antibiotics. Continue current regimen, follow-up cultures. Check for HIV. 12/01/2018: UA negative. 12/01/2018: UDS negative. 12/01/2018:2D echo LVEF 60%. No thrombus, no vegetation. 12/01/2018:Venous Doppler left lower extremity no DVT. 12/01/2018 CTA chest no pulmonary embolus line 12/01/2018 lumbar MRI moderate bilateral L5-S1 foraminal stenosis due to 9 mm anterolisthesis secondary to bilateral L5 pars interarticularis defect. (2) Hypertension Is this a current diagnosis for this admission?: Yes Plan: Uncontrolled. Start on low-dose amlodipine, adjust meds as needed. 12/03/2018: SBP 781081, T-max 98.8, pulse 60s, RR 1413, SPO2 100% RA. (3) Leukocytosis Qualifiers: Leukocytosis type: unspecified Qualified Code(s): D72.829 - Elevated white blood cell count, unspecified Is this a current diagnosis for this admission?: Yes Plan: As per #1. (4) Hx of deep venous thrombosis Is this a current diagnosis for this admission?: No Plan: Patient gives a history of DVT in left lower extremity 2010 was subsequently infected and was operated on. Patient used to be on Coumadin. Currently not on any anticoagulation. Left lower extremity Doppler negative for DVT.
[2018-12-03] MEDS: AMLODIPINE BESYLATE 2.5 MG TABLET PO SCH (13:31)
[2018-12-04 06:17] LABS: ABSOLUTE BASOPHILS # (AUTO) 0.1 10^3/uL (0.0-0.2); ABSOLUTE EOSINOPHILS # (AUTO) 0.2 10^3/uL (0.0-0.6); ABSOLUTE LYMPHOCYTES (AUTO) 1.9 10^3/uL (0.5-4.7); ABSOLUTE MONOCYTES (AUTO) 0.7 10^3/uL (0.1-1.4); ABSOLUTE NEUT (AUTO) 3.9 10^3/uL (1.7-8.2); BASOPHILS % (AUTO) 0.8 % (0-2); EOSINOPHILS % (AUTO) 2.5 % (0-6); HEMATOCRIT 36.5 % (37.9-51.0); HEMOGLOBIN 12.5 g/dL (13.5-17.0); LYMPHOCYTES % (AUTO) 28.7 % (13-45); MEAN CORPUSCULAR HEMOGLOBIN 30.2 pg (27.0-33.4); MEAN CORPUSCULAR HGB CONC 34.3 g/dL (32.0-36.0); MEAN CORPUSCULAR VOLUME 88 fl (80-97); MONOCYTES % (AUTO) 9.8 % (3-13); PLATELET COUNT 178 10^3/uL (150-450); RED BLOOD COUNT 4.15 10^6/uL (4.35-5.55); RED CELL DISTRIBUTION WIDTH 13.4 % (11.5-14.0); SEGMENTED NEUTROPHILS % (AUTO) 58.2 % (42-78); TOTAL CELLS COUNTED % (AUTO) 100 %; WHITE BLOOD COUNT 6.7 10^3/uL (4.0-10.5)
[2018-12-04 06:43] LABS: ALANINE AMINOTRANSFERASE 21 U/L (21-72); ALBUMIN 3.4 g/dL (3.5-5.0); ALKALINE PHOSPHATASE 46 U/L (38-126); ANION GAP 8 (5-19); ASPARTATE AMINO TRANSFERASE 12 U/L (17-59); BILIRUBIN,DIRECT 0.1 mg/dL (0.0-0.4); BILIRUBIN,TOTAL 0.1 mg/dL (0.2-1.3); BLOOD UREA NITROGEN 10 mg/dL (7-20); CALCIUM 9.3 mg/dL (8.4-10.2); CARBON DIOXIDE 28 mmol/L (22-30); CHLORIDE 103 mmol/L (98-107); GLUCOSE 88 mg/dL (75-110); POTASSIUM 4.5 mmol/L (3.6-5.0); SODIUM 138.8 mmol/L (137-145); TOTAL PROTEIN 5.8 g/dL (6.3-8.2)
[2018-12-04] MEDS: OXYCODONE-ACETAMINOPHEN 5-325 MG TABLET PO PRN ×2 (08:12→18:29)
[2018-12-04] MEDS: HEPARIN SOD (PORCINE) 5,000 UNIT/ML 1 ML SYRINGE SUBCUT SCH ×2 (10:10→21:54)
[2018-12-04] MEDS: VANCOMYCIN HCL 1,500 MG in DEXTROSE 5%-WATER 250 ML IV SCH ×2 (10:10→21:54)
[2018-12-04] MEDS: AMLODIPINE BESYLATE 2.5 MG TABLET PO SCH (10:10)
[2018-12-04 10:16] LABS: VANCOMYCIN,TROUGH 12.3 ug/mL (5.0-20.0)
--- NOTE | 2018-12-04 10:59 | PDOC PROGRESS REPORT ---
Subjective Progress Note for:: 12/04/18 Subjective:: MONIQUE GAYTAN JR is a 28 year old male with a past medical history of DVT on the left lower extremity in 2009 and was previously on Coumadin, HTN-not on meds and asthma. He also reports some sort of infection on the same area and he says he had an infected clot on that leg was brought into group home because of left thigh pain. Patient says that he does have chronic pain on the medial aspect of the left groin after he had a surgical removal of "that previously infected clot". In the ER, he was noted to be febrile with a T-max of 103 F. Initial work-up is unrevealing for definite source of infection. Left lower extremity ultrasound is negative for DVT or abscess. Left groin mass is deemed to be a likely enlarged lymph node. Chest CTA was also done as patient initially complaining of mild chest pain this came back negative for PE or pneumonia. UA was also negative. On auscultation, patient does have a systolic murmur but he says that he was told that he had a murmur since he was a baby. He denies IV drug use. He complains of mild lower back pain but this has been chronic. There is no significant focal tenderness along the spine. 12/03/2018. No events overnight. Patient complaining of left lower extremity pain, denies any fever, chills, nausea, vomiting, diarrhea, constipation or any urinary symptoms. 12/04/2018. No acute events overnight, patient has been afebrile, complaining of persistent left lower extremity 2/5, constant, worse with movement, is any fever, chills, nausea, vomiting, diarrhea, constipation or any urinary symptoms. SBP 485838, T-max 98.2, pulse 60s RR 1418, SPO2 100% RA. WBC 6.7, hemoglobin 12.5, platelets 178, sodium 138.8, potassium 4.5, bicarb 28, creatinine 1.13, CRP 5.9, ESR 7, HIV negative, Reason For Visit: FUO, MRSA UTI Physical Exam Vital Signs: Temp Pulse Resp BP Pulse Ox 98.2 F 63 16 114/68 100 12/04/18 03:58 12/04/18 03:58 12/03/18 20:25 12/04/18 03:58 12/04/18 03:58 Intake & Output 12/03/18 12/04/18 12/05/18 06:59 06:59 06:59 Intake Total 3634 1808 Output Total 3640 0 Balance -6 -242 Weight 83.6 kg 83.8 kg General appearance: PRESENT: no acute distress, well-developed, well-nourished Head exam: PRESENT: atraumatic, normocephalic Eye exam: PRESENT: conjunctiva pink, EOMI, PERRLA. ABSENT: scleral icterus Ear exam: PRESENT: normal external ear exam Mouth exam: PRESENT: moist, tongue midline Neck exam: ABSENT: carotid bruit, JVD, lymphadenopathy, thyromegaly Respiratory exam: PRESENT: clear to auscultation elmo. ABSENT: rales, rhonchi, wheezes Cardiovascular exam: PRESENT: RRR. ABSENT: diastolic murmur, rubs, systolic murmur Pulses: PRESENT: normal dorsalis pedis pul Vascular exam: PRESENT: normal capillary refill GI/Abdominal exam: PRESENT: normal bowel sounds, soft. ABSENT: distended, guarding, mass, organolmegaly, rebound, tenderness Rectal exam: PRESENT: deferred Extremities exam: PRESENT: full ROM. ABSENT: calf tenderness, clubbing, pedal edema Musculoskeletal exam: PRESENT: tenderness - Left lower extremity below knee tenderness diffuse, neurovascularly intact. No sign of infection, erythema, swelling, discharge. Neurological exam: PRESENT: alert, awake, oriented to person, oriented to place, oriented to time, oriented to situation, CN II-XII grossly intact. ABSENT: motor sensory deficit Psychiatric exam: PRESENT: appropriate affect, normal mood. ABSENT: homicidal ideation, suicidal ideation Skin exam: PRESENT: dry, intact, warm. ABSENT: cyanosis, rash Results Laboratory Results: 12/04/18 05:23 12/04/18 05:23 12/04/18 12/04/18 05:23 05:23 WBC 6.7 RBC 4.15 L Hgb 12.5 L Hct 36.5 L MCV 88 MCH 30.2 MCHC 34.3 RDW 13.4 Plt Count 178 Seg Neutrophils % 58.2 Lymphocytes % 28.7 Monocytes % 9.8 Eosinophils % 2.5 Basophils % 0.8 Absolute Neutrophils 3.9 Absolute Lymphocytes 1.9 Absolute Monocytes 0.7 Absolute Eosinophils 0.2 Absolute Basophils 0.1 Sodium 138.8 Potassium 4.5 Chloride 103 Carbon Dioxide 28 Anion Gap 8 BUN 10 Creatinine 1.13 Est GFR ( Amer) > 60 Est GFR (Non-Af Amer) > 60 Glucose 88 Calcium 9.3 Magnesium 2.0 Total Bilirubin 0.1 L AST 12 L ALT 21 Alkaline Phosphatase 46 Total Protein 5.8 L Albumin 3.4 L 12/01/18 05:50 Clean Catch Midstream Urine Culture - Final Mrsa (Meth Resis Staph Aureus) 12/01/18 04:46 Troponin I < 0.012 Impressions: Lumbar Spine MRI 12/01/18 00:00 IMPRESSION: Mild -moderate bilateral L5-S1 exit foraminal stenosis due to 9 mm anterolisthesis secondary to bilateral L5 pars interarticularis defects. Chest X-Ray 12/01/18 04:44 IMPRESSION: No acute cardiopulmonary findings. Assessment and Plan - Diagnosis (1) Fever Qualifiers: Fever type: unspecified Qualified Code(s): R50.9 - Fever, unspecified Is this a current diagnosis for this admission?: Yes Plan: FUE. Afebrile, WBC within normal limits. Cultures no growth so far. HIV nega tive. 2D echo negative for any vegetation, thrombus, CTA negative for any pneumonia PE, left lower extremity Doppler negative for any DVT 12/04/2018: SBP 252312, T-max 98.2, pulse 60s RR 1418, SPO2 100% RA. WBC 6.7, hemoglobin 12.5, platelets 178 12/03/2018: SBP 738576, T-max 98.8, pulse 60s, RR 1413, SPO2 100% RA. WBC 9.7, hemoglobin 12.4, platelets 143. Day 4 of IV empiric antibiotics. Continue current regimen, follow-up cultures. 12/03/2018: HIV negative. CRP 5.9, ESR 7. 12/01/2018: UA negative. 12/01/2018: UDS negative. 12/01/2018:2D echo LVEF 60%. No thrombus, no vegetation. 12/01/2018:Venous Doppler left lower extremity no DVT. 12/01/2018 CTA chest no pulmonary embolus line 12/01/2018 lumbar MRI moderate bilateral L5-S1 foraminal stenosis due to 9 mm anterolisthesis secondary to bilateral L5 pars interarticularis defect. (2) Hypertension Is this a current diagnosis for this admission?: Yes Plan: Controlled. Amlodipine 2.5 mg p.o. daily. Normotensive, euvolemic. (3) Leukocytosis Qualifiers: Leukocytosis type: unspecified Qualified Code(s): D72.829 - Elevated white blood cell count, unspecified Is this a current diagnosis for this admission?: Yes Plan: As per #1. (4) Hx of deep venous thrombosis Is this a current diagnosis for this admission?: No Plan: Patient gives a history of DVT in left lower extremity 2010 was subsequently infected and was operated on. Patient used to be on Coumadin. Currently not on any anticoagulation. Left lower extremity Doppler negative for DVT.
[2018-12-05 06:45] LABS: ABSOLUTE BASOPHILS # (AUTO) 0.1 10^3/uL (0.0-0.2); ABSOLUTE EOSINOPHILS # (AUTO) 0.2 10^3/uL (0.0-0.6); ABSOLUTE LYMPHOCYTES (AUTO) 1.9 10^3/uL (0.5-4.7); ABSOLUTE MONOCYTES (AUTO) 0.6 10^3/uL (0.1-1.4); ABSOLUTE NEUT (AUTO) 3.3 10^3/uL (1.7-8.2); BASOPHILS % (AUTO) 1.2 % (0-2); EOSINOPHILS % (AUTO) 2.7 % (0-6); HEMATOCRIT 37.2 % (37.9-51.0); HEMOGLOBIN 12.5 g/dL (13.5-17.0); LYMPHOCYTES % (AUTO) 31.8 % (13-45); MEAN CORPUSCULAR HEMOGLOBIN 29.8 pg (27.0-33.4); MEAN CORPUSCULAR HGB CONC 33.7 g/dL (32.0-36.0); MEAN CORPUSCULAR VOLUME 89 fl (80-97); MONOCYTES % (AUTO) 9.3 % (3-13); PLATELET COUNT 182 10^3/uL (150-450); RED CELL DISTRIBUTION WIDTH 13.2 % (11.5-14.0); TOTAL CELLS COUNTED % (AUTO) 100 %
[2018-12-05 07:00] LABS: ANION GAP 6 (5-19); BLOOD UREA NITROGEN 12 mg/dL (7-20); CALCIUM 9.4 mg/dL (8.4-10.2); CARBON DIOXIDE 28 mmol/L (22-30); CHLORIDE 104 mmol/L (98-107); GLUCOSE 91 mg/dL (75-110); POTASSIUM 4.5 mmol/L (3.6-5.0); SODIUM 137.7 mmol/L (137-145)
[2018-12-05] MEDS: OXYCODONE-ACETAMINOPHEN 5-325 MG TABLET PO PRN ×2 (07:38→14:58)
[2018-12-05] MEDS: VANCOMYCIN HCL 1,500 MG in DEXTROSE 5%-WATER 250 ML IV SCH (09:43)
[2018-12-05] MEDS: HEPARIN SOD (PORCINE) 5,000 UNIT/ML 1 ML SYRINGE SUBCUT SCH (09:45)
[2018-12-05] MEDS: AMLODIPINE BESYLATE 2.5 MG TABLET PO SCH (09:57)
--- NOTE | 2018-12-05 11:58 | RADIOLOGY REPORT (SQ) ---
EXAM DESCRIPTION: VENOUS UNILATERAL LOWER COMPLETED DATE/TIME: 12/05/2018 11:41 am REASON FOR STUDY: LLE BK pain and swelling COMPARISON: 12/01/2018 left lower extremity venous Doppler TECHNIQUE: Dynamic and static antoine scale and color images acquired of the left leg venous system. Se lected spectral images acquired with additional compression and augmentation maneuvers. The contralat eral common femoral vein and saphenofemoral junction were also imaged. Images stored on PACS. LIMITATIONS: None. FINDINGS: LEFT COMMON FEMORAL: Normal phasicity, compression and augmentation. No visualized echogenic material on g ray scale. No defects on color images. FEMORAL: Normal compression and augmentation. No visualized echogenic material on antoine scale. No defe cts on color images. POPLITEAL: Normal compression, augmentation. No visualized echogenic material on antoine scale. No defec ts on color images. POSTERIOR TIBIAL AND PERONEAL VEINS: Normal compression, augmentation. No visualized echogenic materi al on antoine scale. No defects on color images. GSV and SSV: Normal compression, augmentation. No visualized echogenic material on antoine scale. No def ects on color images. ANY DEEP VENOUS INSUFFICIENCY: Not evaluated. ANY EVIDENCE OF POPLITEAL CYST: No. OTHER: 3 cm left inguinal lymph node, of doubtful significance. RIGHT COMMON FEMORAL VEIN AND SAPHENOFEMORAL JUNCTION: Normal phasicity, compression and augmentation. No visualized echogenic material on antoine scale. No de fects on color images. IMPRESSION: NO EVIDENCE OF DVT OR SVT IN THE LEFT LEG. TECHNICAL DOCUMENTATION: JOB ID: [id number] [email or web address]- All Rights Reserved Reading location - IP/workstation name: [email or web address]
[2018-12-05 16:19] VITALS: BP 136/72
--- NOTE | 2018-12-05 17:53 | PDOC CONSULTATION ---
Consultation Consult Date: 12/05/18 Attending physician:: EFE GILMAN Provider Consulted: LUIS MANUEL GONGORA Consult reason:: L groin LAD History of Present Illness Admission Date/PCP: 12/01/18 16:40 Patient complains of: LLE swelling and pain History of Present Illness: MONIQUE GAYTAN JR is a 28 year old male who presented with an MRSA UTI, fevers but also had left lower extremity swelling and pain, apparently had a boil on his left pretibial area, because he was having fevers and his leg was swollen he was referred here, here he had blood cultures drawn which were negative, UA/urine culture however did show infection and ultimately had MRSA UTI. He has been on vancomycin since 12/02/2018. He has had about 5 days of vancomycin thus far. Initially had several tests done including left lower extreme the ultrasound/groin ultrasound and ultimately had a 3.6 cm left groin lymph node. Because of the fever of unknown origin on presentation he also had an MRI of the spine, CTA of the chest, there is no PE noted, no other lymphadenopathy noted on any of the images that I saw or any other primary lesions concerning for malignancy. In discussion with the patient the groin lymph node has been there for at least 1 to 2 years, he was seen by oncology at [facility], probably affiliated with the [facility]. There, he had what sounds like a core biopsy of the lymph node. He was told it is just a reactive node by oncologist there, he remembers. Otherwise, before the episode of left lower extremity pain and swelling as well as the fever prior to coming in, he was not having any other B symptoms. As noted in the HPI, he had an infected thrombus in the left upper leg, and he had abscess there as well as removal of the thrombus in 2009 as an emergent surgery. He was very sick at that time and he was very concerned that this was going to be the same issue. The previous scar from that excision is in very close proximity to the groin adenopathy. Past Medical History Cardiac Medical History: Reports: DVT, Hypertension Pulmonary Medical History: Reports: Asthma Past Surgical History Past Surgical History: Reports: Orthopedic Surgery - leg for clot Social History Information Source: Patient Lives with: Other - Incarcerated Smoking Status: Current Every Day Smoker - Advance Directive Resuscitation Status: Full Code Family History Family History: Reviewed & Not Pertinent Parental Family History Reviewed: Yes Children Family History Reviewed: Yes Sibling(s) Family History Reviewed.: Yes Medication/Allergy Home Medications: No Home Medications 12/01/18 Allergies/Adverse Reactions: amoxicillin [From Augmentin] Allergy (Verified 12/01/18 06:17) clavulanic acid [From Augmentin] Allergy (Verified 12/01/18 06:17) Penicillins Allergy (Verified 12/01/18 06:17) tramadol Allergy (Verified 12/01/18 06:17) Review of Systems Constitutional: ABSENT: chills, fever(s), headache(s), weight gain, weight loss Eyes: ABSENT: visual disturbances Ears: ABSENT: hearing changes Cardiovascular: ABSENT: chest pain, dyspnea on exertion, edema, orthropnea, palpitations Respiratory: ABSENT: cough, hemoptysis Gastrointestinal: ABSENT: abdominal pain, constipation, diarrhea, hematemesis, hematochezia, nausea, vomiting Genitourinary: ABSENT: dysuria, hematuria Musculoskeletal: ABSENT: joint swelling Integumentary: ABSENT: rash, wounds Neurological: ABSENT: abnormal gait, abnormal speech, confusion, dizziness, focal weakness, syncope Psychiatric: ABSENT: anxiety, depression, homidical ideation, suicidal ideation Endocrine: ABSENT: cold intolerance, heat intolerance, polydipsia, polyuria Hematologic/Lymphatic: ABSENT: easy bleeding, easy bruising Physical Exam Vital Signs: Temp Pulse Resp BP Pulse Ox 98.6 F 73 16 136/72 H 100 12/05/18 16:00 12/05/18 16:00 12/05/18 16:00 12/05/18 16:00 12/05/18 16:00 Intake & Output 12/04/18 12/05/18 12/06/18 06:59 06:59 06:59 Intake Total 1808 1964 730 Output Total 0 1670 750 Balance -242 294 -20 Weight 83.8 kg 84.6 kg General appearance: PRESENT: no acute distress, well-developed, well-nourished Head exam: PRESENT: atraumatic, normocephalic Eye exam: PRESENT: conjunctiva pink, EOMI, PERRLA. ABSENT: scleral icterus Ear exam: PRESENT: normal external ear exam Mouth exam: PRESENT: moist, tongue midline Neck exam: ABSENT: carotid bruit, JVD, lymphadenopathy, thyromegaly Respiratory exam: PRESENT: clear to auscultation elmo. ABSENT: rales, rhonchi, wheezes Cardiovascular exam: PRESENT: RRR. ABSENT: diastolic murmur, rubs, systolic murmur Pulses: PRESENT: normal dorsalis pedis pul Vascular exam: PRESENT: normal capillary refill GI/Abdominal exam: PRESENT: normal bowel sounds, soft. ABSENT: distended, guard ing, mass, organolmegaly, rebound, tenderness Rectal exam: PRESENT: deferred Extremities exam: PRESENT: full ROM. ABSENT: calf tenderness, clubbing, pedal edema Neurological exam: PRESENT: alert, awake, oriented to person, oriented to place, oriented to time, oriented to situation, CN II-XII grossly intact. ABSENT: motor sensory deficit Psychiatric exam: PRESENT: appropriate affect, normal mood. ABSENT: homicidal ideation, suicidal ideation Skin exam: PRESENT: dry, intact, warm. ABSENT: cyanosis, rash Results Laboratory Results: 12/05/18 06:02 12/05/18 06:02 12/05/18 12/05/18 06:02 06:02 WBC 6.0 RBC 4.20 L Hgb 12.5 L Hct 37.2 L MCV 89 MCH 29.8 MCHC 33.7 RDW 13.2 Plt Count 182 Seg Neutrophils % 55.0 Lymphocytes % 31.8 Monocytes % 9.3 Eosinophils % 2.7 Basophils % 1.2 Absolute Neutrophils 3.3 Absolute Lymphocytes 1.9 Absolute Monocytes 0.6 Absolute Eosinophils 0.2 Absolute Basophils 0.1 Sodium 137.7 Potassium 4.5 Chloride 104 Carbon Dioxide 28 Anion Gap 6 BUN 12 Creatinine 1.10 Est GFR ( Amer) > 60 Est GFR (Non-Af Amer) > 60 Glucose 91 Calcium 9.4 Magnesium 2.0 12/01/18 04:46 Troponin I < 0.012 Impressions: Lumbar Spine MRI 12/01/18 00:00 IMPRESSION: Mild -moderate bilateral L5-S1 exit foraminal stenosis due to 9 mm anterolisthesis secondary to bilateral L5 pars interarticularis defects. Chest X-Ray 12/01/18 04:44 IMPRESSION: No acute cardiopulmonary findings. Venous Doppler Study 12/05/18 09:52 IMPRESSION: NO EVIDENCE OF DVT OR SVT IN THE LEFT LEG. Status: Image reviewed by me Assessment & Plan - Diagnosis (1) Localized enlarged lymph nodes Is this a current diagnosis for this admission?: Yes Plan: Left groin adenopathy, chronic in nature, unsure if he actually had it from when he initially had the infected thrombus back in 2009, but he does not remember it being there since then. He does certainly remember for at least 2 years, it already had biopsy done per his recollection. Because of this, we will plan for getting the records from [facility] and having follow-up in our office in a few weeks. At that time we will be able to determine whether further biopsies are needed, if they are excisional biopsy will be needed. - Time Time Spent: Greater than 70 Minutes
== END 2018-12-05 18:54 | DRG 690 ==
LOC: ER 04:29 → EH 16:40 → OBSVTOIN 16:40 → 4S 18:35
PROVIDERS: ADMIT Internal Medicine; ATTEND Internal Medicine
DX: N39.0 Urinary tract infection, site not specified (principal); B95.62 Methicillin resistant Staphylococcus aureus infection as the cause of diseases classified elsewhere; D72.829 Elevated white blood cell count, unspecified; I10 Essential (primary) hypertension; R59.0 Localized enlarged lymph nodes; R01.1 Cardiac murmur, unspecified; F17.200 Nicotine dependence, unspecified, uncomplicated; Z86.718 Personal history of other venous thrombosis and embolism; Z88.0 Allergy status to penicillin; Z88.8 Allergy status to other drugs, medicaments and biological substances
CPT/HCPCS: 36415; 71046; 71275; 72148; 80048; 80053; 80202; 80307; 81001; 82803; 83605; 83615; 83735; 84484; 85025; 85652; 86140; 86701; 87040; 87086; 87088; 87186; 93005; 93010; 93306; 93971; 96361; 96374; 99285; G0378; J1644; J1885; J1956; J3370; J3490; J7030; J7060